=== PATIENT | female | born 1960 | race Native Hawaiian/Other Pacific Islander ===

== ENCOUNTER 2017-07-17 08:44 | Day surgery (SDC) | payer MEDICAID ==
[2017-07-10 13:33] VITALS: BMI 23.9
--- NOTE | 2017-07-17 10:46 | CP.SDSHP ---
Same Day Surgery H & P - History Proposed Procedure: US guided FNA of right and left thyroid nodules Pre-Op Diagnosis: right and left thyroid nodules - Allergies Allergies: Allergies No Known Allergies Allergy (Verified 07/10/17 13:33) - Physical Exam Mental Status: Alert & Oriented x3 Neuro: WNL Heart: WNL Lungs: WNL - Impression Impression: Pt with bilateral thyroid nodules. Plan US guided FNA. Pt. Evaluated Today:Candidate for Anesthesia & Procedure: No - Date & Time Date: 07/17/17 Time: 10:40 Short Stay Discharge - Short Stay Discharge Admitting Diagnosis/Reason for Visit: THYROID NODULE
--- NOTE | 2017-07-17 10:49 | PCM.SURG1 ---
Surgeon's Initial Post Op Note - Surgeon's Notes Surgeon: Mookie Herrera MD [employer] Professor: NONE Type of Anesthesia: Local Pre-Operative Diagnosis: Thyroid nodules Operative Findings: US showed multiple right and left thyroid nodules. Post-Operative Diagnosis: Thyroid nodules Operation Performed: US guided of largest right thyroid nodule and large left midpole nodule and left lower pole nodule. These were sampled on previously 2016. Specimen/Specimens Removed: 25 g FNA x 4 passes per nodule Estimated Blood Loss: EBL {In ML}: 2 Blood Products Given: N/A Drains Used: No Drains Post-Op Condition: Fair Date of Surgery/Procedure: 07/17/17 Time of Surgery/Procedure: 10:40
[2017-07-17 11:25] VITALS: BP 118/66; PULSE 69; RESP 16; TEMP 97.7; O2SAT 99
--- NOTE | 2017-07-17 14:22 | US ---
PROCEDURE: Date of Procedure:07/17/2017 PROCEDURE: 1. Ultrasound guided FNA of left thyroid nodule, CPT 25948 2. Ultrasound guided FNA of two RIGHT thyroid nodules, 3. Ultrasound guidance for FNA, 41178 Medications: 4cc 1% Lidocaine HISTORY: Enlarged thyroid nodules. TECHNIQUE: Following informed consent and procedure time-out, a limited ultrasound patient's neck confirmed the presence of a 3.6 cm predominant solid right midpole nodule for several other right nodules are present. 3.9 centimeter left midpole nodule and 3centimeter left lower pole nodule were identified for FNA. Multiple other right and left nodules are present. After the patient's neck was prepped and draped in the usual sterile fashion, the skin was anesthetized with 1% lidocaine. Ultrasound-guided fine needle aspiration was then performed of the left midpole thyroid nodule followed by the left lower pole thyroid nodule. A total of 4 passes were made into the nodule with 25 gauge needle under ultrasound guidance. The FNA specimen was sent for routine pathology. Ultrasound guided FNA was then performed of the right midpole thyroid nodule. Again 4 passes were made into the nodule with 25 gauge needle. The FNA specimen was sent for routine pathology. Post biopsy ultrasound showed no hematoma. IMPRESSION: Thyroid ultrasound showed multiple left and right thyroid nodules. The 3 thyroid nodules were selected for FNA. FNA of the left midpole and lower pole nodules performed. This was followed by a FNA of the right midpole nodule.
== END 2017-07-17 11:24 | disposition home or self-care (01) ==
LOC: C.SPRAD 08:44
PROVIDERS: ATTEND Radiology Vascular & Interventional Radiology
DX: E04.2 Nontoxic multinodular goiter (principal)